=== PATIENT | male | born 1940 | race African-American/Black ===

== ENCOUNTER 2016-05-17 14:44 | Emergency (ER) | payer MEDICARE ==
[2016-05-17 15:05] VITALS: TEMP 97.5; BMI 32.7
[2016-05-17 16:55] LABS: AUTOMATED BASOPHIL 0.3 % (0-2); AUTOMATED EOSINOPHIL 6.3 % (0-5); AUTOMATED LYMPH 29.4 % (17-44); AUTOMATED MONOCYTE 14.7 % (3-10); AUTOMATED NEUTROPHIL 49.3 % (45-76); MPV 9.5 fL (7.4-10.4)
[2016-05-17 17:05] LABS: BLOOD UREA NITROGEN 34 MG/DL (9-20); CALCIUM 9.1 MG/DL (8.4-10.2); CALCULATED OSMOLALITY 276 MOs/Kg (270-290); CHLORIDE 103 mEq/L (98-107); GLUCOSE 106 MG/DL (70-99); SODIUM LEVEL 139 mEq/L (137-146); TOTAL PROTEIN 8.3 G/DL (6.3-8.2)
--- NOTE | 2016-05-17 17:06 | DIRPT ---
CLINICAL DATA: Headache. History of some type of cancer in 2015. The patient is uncertain as to which kind of cancer. Right-sided headache for 1 hour. EXAM: CT HEAD WITHOUT CONTRAST TECHNIQUE: Contiguous axial images were obtained from the base of the skull through the vertex without intravenous contrast. COMPARISON: 02/09/2016 FINDINGS: There is significant periventricular white matter change, consistent with small vessel disease. Central cortical atrophy present. There is no intra or extra-axial fluid collection or mass lesion. The basilar cisterns and ventricles have a normal appearance. There is no CT evidence for acute infarction or hemorrhage. Bone windows show no acute calvarial abnormality. Atherosclerotic calcification of the internal carotid arteries is noted. IMPRESSION: 1. Atrophy and small vessel disease. 2. No evidence for acute intracranial abnormality. Electronically Signed By: Jennifer Zuniga M.D. On: 05/17/2016 17:03
[2016-05-17] MEDS ORDERED: KETOROLAC TROMETH 30 MG/ML VIAL IV ONE (17:14)
--- NOTE | 2016-05-17 17:14 | EDPRACDOC ---
- General Information Chief Complaint: Headache Stated Complaint: SHARP PAINS IN HEAD X1 HOUR Time Seen by Provider: 05/17/16 16:09 Information Source: Patient, Family Home Medications: Home Medications Allopurinol [Zyloprim] 300 mg PO DAILY 04/14/13 Amlodipine [Norvasc] 10 mg PO DAILY 04/14/13 Aspirin (Enteric Coated) [Halfprin] 81 mg PO DAILY 04/14/13 Carvedilol [Coreg] 6.25 mg PO BID 12/26/15 Lisinopril 10 mg PO DAILY 12/26/15 Spironolactone 12.5 mg PO DAILY 12/26/15 Tamsulosin HCl [Flomax] 0.4 mg PO DAILY 12/26/15 Levothyroxine [Synthroid, Levoxyl] 25 mcg PO DAILY 01/03/16 Allergies/Adverse Reactions: Allergies Allergy/AdvReac Type Severity Reaction Status Date / Time Penicillins Allergy Severe Anaphylaxis Verified 05/17/16 14:55 * Opioids - Morphine Analogues Allergy Confusion Verified 05/17/16 14:55 oxycodone [Oxycodone] AdvReac Severe Confusion Verified 05/17/16 14:55 - History of Present Illness Location: Reports: Generalized Pain Quality: Reports: Mild Modifying Factors: improves with: Cold therapy Associated Signs and Symptoms: Reports: Facial Pain, Flushing, Vision Changes ED Past Medical History - History Reviewed Yes Nurses notes reviewed and agree except as marked - Patient Medical History Neurological History: Reports: Dementia (moderate) Cardiac History: Reports: Coronary Artery Disease, Atrial Fibrillation, Hypertension, Congestive Heart Failure, Cardiac Catheterization, Cardiomyopathy (Severe, dilated, 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 Denies: Depression, Substance Use Disorder Systemic History: Reports: Cancer (rectal), Hypothyroidism Surgical History: Reports: Cholecystectomy, Cardiac Catheterization Date of Last Radiation Treatment: 2015 - Family Medical History Reports: Hypertension, Cancer (Father), Stroke (Mother), Cardiac Disorders - Social Medical History Smoking Status: Never smoker Social History: Denies: Substance Use Disorder EDM Review of Systems - Review of Systems ROS Negative Except as Marked: Yes All systems reviewed and were negative except as marked - Physical Exam Constitutional: Alert (Awake), No apparent distress Oriented to: Person Last recorded Vital Signs: Last Vital Signs Temp 97.5 F 05/17/16 15:05 Pulse 52 L 05/17/16 15:05 Resp 18 05/17/16 15:05 BP 140/66 05/17/16 15:05 Pulse Ox 98 05/17/16 15:05 Oxygen Pulse Oxygen Saturation 98 O2 Device Oxygen Flow Rate Fraction of Inspired Oxygen ( FIO2) - HEENT Head: Normal ( normocephalic) Eye Exam: Normal (PERRL, EOMI, Sclera white) Oropharynx: Normal (Pharynx:Moist without exudate,Gums-no swelling) ENT EAC: Normal TMJ: Normal Nose: No Symptoms Reported (septum midline) Neck: Normal (FROM, trachea at midline) - Respiratory/Cardiovascular Respiratory: Normal - CTA (BBS clear to auscultation without adventitious sounds ) Cardiovascular: Normal (RRR without murmur, gallop or rub) - GI Auscultation: Normal (NABS) Palpation: Normal (Soft,No rebound or guarding, non distended) Tenderness: Non tender Lopez's Sign: Negative - Musculoskeletal Back: Normal (Non-Tender) Extremities: Normal (Normal tone, Pulses 2+ No cyanosis or edema, FROM) - Integumentary Skin: Normal, Warm, Dry Lymphatics: Normal (no adenopathy) - Neurologic Memory Impaired: Normal Motor Function: Normal (Normal tone, Pulses 2+ No cyanosis or edema, FROM) Cranial Nerve: Normal (CN II-X11 intact sensation, strength 5/5) Cerebellar: Normal Mood Description: Normal Perception: Normal - Results 05/17/16 16:35 05/17/16 16:35 WBC 5.0 xk/uL (3.8-10.8) 05/17/16 16:35 RBC 3.63 xM/uL (4.70-6.10) L 05/17/16 16:35 Hgb 10.9 g/dL (14.0-18.0) L 05/17/16 16:35 Hct 31.7 % (42-52) L 05/17/16 16:35 MCV 87 fL (80-94) 05/17/16 16:35 MCH 30.0 pg (27-32) 05/17/16 16:35 MCHC 34.4 g/dl (33-36) 05/17/16 16:35 RDW 14.3 % (11.5-14.5) 05/17/16 16:35 Plt Count 168 xk/uL (130-400) 05/17/16 16:35 MPV 9.5 fL (7.4-10.4) 05/17/16 16:35 Neut % (Auto) 49.3 % (45-76) 05/17/16 16:35 Lymph % (Auto) 29.4 % (17-44) 05/17/16 16:35 [place] % (Auto) 14.7 % (3-10) H 05/17/16 16:35 Eos % (Auto) 6.3 % (0-5) H 05/17/16 16:35 Baso % (Auto) 0.3 % (0-2) 05/17/16 16:35 Absolute Neuts (auto) 2.45 xk/uL (1.7-8.2) 05/17/16 16:35 Absolute Lymphs (auto) 1.45 xk/uL (0.65-4.75) 05/17/16 16:35 Sodium 139 mEq/L (137-146) 05/17/16 16:35 Potassium 4.0 mEq/L (3.5-5.1) 05/17/16 16:35 Chloride 103 mEq/L (98-107) 05/17/16 16:35 Carbon Dioxide 25 mMOL/L (22-33) 05/17/16 16:35 Anion Gap 15 mEq/L (8-16) 05/17/16 16:35 BUN 34 MG/DL (9-20) H 05/17/16 16:35 Creatinine 1.30 MG/DL (0.66-1.25) H 05/17/16 16:35 Estimated GFR (MDRD) > 60 mL/min (>=60) 05/17/16 16:35 Glucose 106 MG/DL (70-99) H 05/17/16 16:35 Calculated Osmolality 276 MOs/Kg (270-290) 05/17/16 16:35 Calcium 9.1 MG/DL (8.4-10.2) 05/17/16 16:35 Total Bilirubin 0.3 MG/DL (0.2-1.3) 05/17/16 16:35 AST 30 IU/L (17-59) 05/17/16 16:35 ALT 29 IU/L (21-72) 05/17/16 16:35 Alkaline Phosphatase 69 IU/L (50-160) 05/17/16 16:35 Total Protein 8.3 G/DL (6.3-8.2) H 05/17/16 16:35 Albumin 4.2 G/DL (3.5-5.0) 05/17/16 16:35 Lab Results 05/17/16 05/17/16 16:35 16:35 WBC 5.0 RBC 3.63 L Hgb 10.9 L Hct 31.7 L MCV 87 MCH 30.0 MCHC 34.4 RDW 14.3 Plt Count 168 MPV 9.5 Neut % (Auto) 49.3 Lymph % (Auto) 29.4 [place] % (Auto) 14.7 H Eos % (Auto) 6.3 H Baso % (Auto) 0.3 Absolute Neuts (auto) 2.45 Absolute Lymphs (auto) 1.45 Sodium 139 Potassium 4.0 Chloride 103 Carbon Dioxide 25 Anion Gap 15 BUN 34 H Creatinine 1.30 H Estimated GFR (MDRD) > 60 Glucose 106 H Calculated Osmolality 276 Calcium 9.1 Total Bilirubin 0.3 AST 30 ALT 29 Alkaline Phosphatase 69 Total Protein 8.3 H Albumin 4.2 - Additional Information MD NOTE REPEAT EVALUATION; FEELS BETTER; LAUGHING AND SMILING Decision Time to Discharge: 18:00 - Departure Yes I personally saw and evaluated the patient. Disposition: Home Condition: Good Final Diagnosis: Headache Instructions: Migraine Headache (ED) Education/Counseling Given To: Patient, Family Member Education/Counseling Given Regarding: Diagnosis, Treatment, Prognosis Referrals: Félix Saavedra MD [Primary Care Provider] - One Week
[2016-05-17 18:34] VITALS: BP 134/55; PULSE 82
== END 2016-05-17 18:33 | disposition home or self-care (01) ==
LOC: ED 14:44
DX: R51 Headache (principal)
CPT/HCPCS: 36415; 70450; 80053; 85025; 96374; 99284; J1885